=== PATIENT | male | born 1990 | race Caucasian/White ===

== ENCOUNTER 2020-02-25 18:44 | Emergency (ER) | payer SELFPAY ==
[~2020-02-25] VITALS: Ht 180.3 cm; Wt 104.5 kg
[2020-02-25 19:23] VITALS: BP 144/87
--- NOTE | 2020-02-25 20:23 | PHYS DOC ---
Past Medical History Past Medical History: No Pertinent History (REANNA STOVER APRN) Past Surgical History: No Surgical History (REANNA STOVER APRN) Smoking Status: Current Every Day Smoker Additional Information: VAPES Alcohol Use: Rarely (REANNA STOVER APRN) General Adult EDM: Chief Complaint: LACERATION/AVULSION HPI: HPI: Patient is a 29 year old male patient presents with laceration to posterior left hand. States he had been opening up the new knife from package, with a knife cut his hand. Reports it happened approximately 1 hour prior to come to the hospital. States he does not know when his last tetanus shot was, but believes it was more than 10 years ago when he had an injury to his foot from stepping on a nail. Denies any paresthesia. Denies any loss of sensation or loss of ability to move, does complain of some discomfort to his thumb (REANNA STOVER APRN) Review of Systems: Review of Systems: Constitutional: Denies fever or chills. [] Musculoskeletal: Denies back pain or joint pain. [] Integument: Denies rash. Reports laceration to left hand [] Neurologic: Denies sensory changes. [] E Psychiatric: Denies depression or anxiety. [] (REANNA STOVER APRN) Heart Score: Risk Factors: Risk Factors: DM, Current or recent (<one month) smoker, HTN, HLP, family history of CAD, obesity. Risk Scores: Score 0 - 3: 2.5% MACE over next 6 weeks - Discharge Home Score 4 - 6: 20.3% MACE over next 6 weeks - Admit for Clinical Observation Score 7 - 10: 72.7% MACE over next 6 weeks - Early Invasive Strategies (REANNA STOVER APRN) Current Medications: Current Medications Medications (Trade) Dose Ordered Sig/Eve Start Time Stop Time Status Last Admin Dose Admin Diphtheria/ Tetanus/Acell Pertussis (ADACEL TDap SYRINGE) 0.5 ml ONCE ONCE 02/25/20 20:45 02/25/20 20:46 Lidocaine HCl (Xylocaine-Mpf 1% 5ml Vial) 5 ml 1X ONCE 02/25/20 20:45 02/25/20 20:46 (REANNA STOVER APRN) Allergies: Allergies: Allergies Coded Allergies Type Severity Reaction Last Updated Verified No Known Drug Allergies 02/25/20 No (REANNA STOVER APRN) Physical Exam: PE: Constitutional: Well developed, well nourished, no acute distress, non-toxic appearance. [] Skin: Warm, dry, no erythema, no rash. 2.5 cm laceration noted to palmar aspect of left hand, near thumb. Partial-thickness without extension into tendons [] Back: No tenderness, no CVA tenderness. [] Extremities: No tenderness, no cyanosis, no clubbing, ROM intact, no edema. F ull range of motion to thumb, hand. Able to grasp, flex, extend thumb [] Neurologic: Alert and oriented X 3, normal motor function, normal sensory function, no focal deficits noted. [] Psychologic: Affect normal, judgement normal, mood normal. [] (REANNA STOVER APRN) Current Patient Data: Vital Signs: Vital Signs Date Time Temp Pulse Resp B/P (MAP) Pulse Ox O2 Delivery O2 Flow Rate FiO2 02/25/20 19:23 98.2 91 20 144/87 (106) 97 Room Air 98.2 (REANNA STOVER APRN) EKG: EKG: [] (REANNA STOVER APRN) Radiology/Procedures: Radiology/Procedures: [] (REANNA STOVER APRN) Course & Med Decision Making: Course & Med Decision Making Pertinent Labs and Imaging studies reviewed. (See chart for details) [] Laceration repair to left hand without foreign body, or involving tendons. Will update tetanus status today. Laceration sutured. Patient to follow-up here or primary care for suture removal (REANNA STOVER APRN) Course & Med Decision Making I have reviewed the PA/GM VIDEO's note and Plan of Care. I was available for consultation as needed during the patient's visit in the emergency department. I agree with the clinical impression, plans and disposition. (GLADYS ALVARENGA MD) Naveen Disclaimer: Naveen Disclaimer: This electronic medical record was generated, in whole or in part, using a voice recognition dictation system. (REANNA STOVER APRN) Laceration Repair Lac Repair Indication: Laceration Procedure: The patient was placed in the appropriate position and anesthesia around the laceration with 4 mL of 1% lidocaine without epi. The area was then cleansed. The laceration was closed with 6 4/0 nylon simple interrupted sutures, the wound area was then dressed with nonadherent dressing and gauze. Total repaired wound length: 2.5 cm. Other Items: None] The patient tolerated the procedure well. Complications: No complications]. (REANNA STOVER APRN) Departure Departure Impression: Primary Impression: Laceration of left hand without complication, excluding fingers Qualified Codes: S61.412A - Laceration without foreign body of left hand, initial encounter Disposition: 01 DC HOME SELF CARE/HOMELESS Condition: GOOD Referrals: NO PCP (PCP) Patient Instructions: Laceration Care, Adult Additional Instructions: Your stitches can be removed in 10 days. You may have been removed at your primary care provider, or you may return here to have them removed. We discussed, try to keep the area clean and dry for the next couple days. When you wash your hand, try to avoid scrubbing over the laceration may inhibit healing and may cause the stitches to come out. Your tetanus shot was updated today, make sure you inform your primary care provider that this is updated today so they can update your records accordingly. REANNA STOVER APRN Feb 25, 2020 20:23 GLADYS ALVARENGA MD Feb 26, 2020 00:44
[2020-02-25] MEDS ORDERED: LIDOCAINE 1% PF 5 ML VIAL. INJ ONE (20:45)
[2020-02-25] MEDS ORDERED: DIPH,PERTUSS(ACELL),TET VAC/PF 0.5 ML SYRINGE. VAX IM ONE (20:45)
== END 2020-02-25 21:15 | disposition home or self-care (01) ==
LOC: ER 18:44
DX: S61.412A Laceration without foreign body of left hand, initial encounter (principal); F17.200 Nicotine dependence, unspecified, uncomplicated; W26.0XXA Contact with knife, initial encounter; Y93.89 Activity, other specified; Y92.89 Other specified places as the place of occurrence of the external cause; Y99.8 Other external cause status
CPT/HCPCS: 12001; 90471; 90715; 99283; J3490